=== PATIENT | female | born 1935 | race Caucasian/White ===

== ENCOUNTER 2019-05-31 13:55 | Inpatient (IN) ==
[2019-05-31 15:14] LABS: Basophils # 0.1 K/mcL (0.0-0.2); Basophils % 1.2 %; Eosinophils # 0.1 K/mcL (0.0-0.6); Eosinophils % 1.3 %; Hemoglobin 12.7 g/dL (11.5-15.4); Immature Granulocytes % 0.3 % (0-4); Immature Platelets 12.3 % (1.1-6.1); Lymphocytes # 0.8 K/mcL (0.6-4.6); Lymphocytes % 13.5 %; Mean Corpuscular HGB Conc 33.4 g/dL (31.6-35.5); Mean Corpuscular Hemoglobin 27.4 pg (28.0-33.3); Mean Corpuscular Volume 82.1 fL (83.0-100.0); Mean Platelet Volume 13.5 fL (9.4-12.4); Monocytes # 0.5 K/mcL (0.0-1.3); Neutrophils # 4.6 K/mcL (1.6-8.9); Platelet Count 131 K/mcL (140-400); Red Blood Count 4.63 M/mcL (3.82-4.97); Red Cell Distribution Width 17.3 % (11.5-14.5); Segmented Neutrophils % 75.7 %
[2019-05-31 15:26] LABS: BUN/Creatinine Ratio 15 (6-26); Blood Urea Nitrogen 25 mg/dL (8-23); Calcium 10.3 mg/dL (8.6-10.3); Carbon Dioxide 23 mEq/L (23-29); Chloride 100 mEq/L (98-107); Glucose 155 mg/dL (70-105); Osmolality,Calculated 284 (280-300); Potassium 4.7 mEq/L (3.5-5.1); Sodium 133 mEq/L (136-145); eGFR For African Americans 35 (> 60); eGFR For Non-African Americans 29 (> 60)
[2019-05-31 15:27] LABS: Troponin I < 0.03 ng/mL (< 0.04)
[2019-05-31] MEDS ORDERED: Furosemide 40 MG/4 ML VIAL IVP ONE (15:57)
[2019-05-31] MEDS ORDERED: Naloxone 0.4 MG/ML INJ IVP PRN (17:11)
[2019-05-31] MEDS ORDERED: Acetaminophen 325 MG TABLET PO PRN (17:11)
[2019-05-31] MEDS ORDERED: Ondansetron 4 MG/2 ML VIAL IVP PRN (17:11)
[2019-05-31] MEDS ORDERED: Dextrose Gel 15 GM/37.5 ML TUBE PO PRN ×2 (17:18)
[2019-05-31] MEDS ORDERED: *HR* Dextrose 50 % in Water (Syg) 50 ML SYRINGE IVP PRN (17:18)
[2019-05-31] MEDS ORDERED: D5% in Water 1,000 ML IVC PRN (17:18)
[2019-05-31] MEDS ORDERED: Ipratropium/Albuterol Neb 3 ML IH PRN (17:20)
[2019-05-31] MEDS: Insulin LISPRO 300 UNITS/3 ML VIAL SQ SCH (21:41)
[2019-05-31] MEDS: *HR* Heparin 5,000 UNIT/ML VIAL SQ SCH (21:51)
[2019-06-01] MEDS: Melatonin 3 MG TABLET PO SCH ×2 (01:16→23:45)
[2019-06-01] MEDS: *HR* Heparin 5,000 UNIT/ML VIAL SQ SCH ×2 (05:06→12:47)
[2019-06-01 07:01] LABS: Basophils # 0.1 K/mcL (0.0-0.2); Basophils % 1.2 %; Eosinophils # 0.1 K/mcL (0.0-0.6); Eosinophils % 2.5 %; Hematocrit 35.7 % (35.3-44.9); Hemoglobin 11.4 g/dL (11.5-15.4); Immature Granulocytes % 0.2 % (0-4); Lymphocytes # 1.1 K/mcL (0.6-4.6); Lymphocytes % 24.5 %; Mean Corpuscular HGB Conc 31.9 g/dL (31.6-35.5); Mean Corpuscular Hemoglobin 27.1 pg (28.0-33.3); Mean Corpuscular Volume 84.8 fL (83.0-100.0); Mean Platelet Volume 13.1 fL (9.4-12.4); Monocytes # 0.6 K/mcL (0.0-1.3); Monocytes % 13.6 %; Neutrophils # 2.5 K/mcL (1.6-8.9); Platelet Count 128 K/mcL (140-400); Red Blood Count 4.21 M/mcL (3.82-4.97); Red Cell Distribution Width 17.2 % (11.5-14.5); White Blood Count 4.3 K/mcL (4.3-11.1)
[2019-06-01 07:19] LABS: Calcium 9.7 mg/dL (8.6-10.3); Potassium 4.2 mEq/L (3.5-5.1)
[2019-06-01 07:55] LABS: Albumin 3.6 g/dL (3.5-5.7); Albumin/Globulin Ratio 1.4 (1.1-2.2); Bilirubin,Direct 0.2 mg/dL (0.0-0.2); Bilirubin,Indirect 0.6 mg/dL (0.0-1.0); Bilirubin,Total 0.8 mg/dL (0.3-1.0); Globulin 2.5 g/dL (2.4-3.5); Total Protein 6.1 g/dL (6.4-8.9)
[2019-06-01 07:59] LABS: Estimated Average Glucose 128 mg/dl
[2019-06-01] MEDS: Insulin LISPRO 300 UNITS/3 ML VIAL SQ SCH ×3 (08:26→22:00)
[2019-06-01] MEDS: Furosemide 40 MG/4 ML VIAL IVP SCH (08:27)
[2019-06-01] MEDS ORDERED: Insulin DETEMIR 100 UNIT/ML X5UNITS SQ SCH (09:00)
[2019-06-01] MEDS ORDERED: Dextrose Gel 15 GM/37.5 ML TUBE PO PRN ×2 (16:52)
[2019-06-01] MEDS ORDERED: D5% in Water 1,000 ML IVC PRN (16:52)
[2019-06-01] MEDS ORDERED: *HR* Dextrose 50 % in Water (Syg) 50 ML SYRINGE IVP PRN (16:52)
[2019-06-01] MEDS ORDERED: Insulin LISPRO 300 UNITS/3 ML VIAL SQ SCH ×2 (17:00→18:15)
[2019-06-01] MEDS: Mirtazapine 15 MG TABLET PO SCH (17:13)
[2019-06-01] MEDS: carvediloL 25 MG TABLET PO SCH (17:13)
[2019-06-01 17:52] LABS: INR 3.1
[2019-06-01] MEDS ORDERED: Warfarin perPT PO PRN (18:00)
[2019-06-01] MEDS ORDERED: *HR* Warfarin 3 MG TABLET PO ONE (19:00)
[2019-06-02] MEDS: Levothyroxine 25 MCG TABLET PO SCH (06:48)
[2019-06-02] MEDS: Insulin LISPRO 300 UNITS/3 ML VIAL SQ SCH ×4 (07:39→22:45)
[2019-06-02] MEDS: Fluticasone Propionate Nasal 50 MCG/SPRAY BOTTLE NS SCH (07:43)
[2019-06-02] MEDS: carvediloL 25 MG TABLET PO SCH ×2 (07:43→16:42)
[2019-06-02] MEDS: Aspirin Enteric Coated 81 MG Tablet PO SCH (07:43)
[2019-06-02] MEDS: Cholecalciferol (D-3) 1,000 UNIT (25MCG) TABLET PO SCH (07:43)
[2019-06-02] MEDS: Furosemide 40 MG/4 ML VIAL IVP SCH (07:43)
[2019-06-02] MEDS ORDERED: Insulin DETEMIR 100 UNIT/ML X5UNITS SQ SCH (09:00)
[2019-06-02 09:46] LABS: Basophils # 0.1 K/mcL (0.0-0.2); Basophils % 1.2 %; Eosinophils # 0.1 K/mcL (0.0-0.6); Eosinophils % 1.9 %; Hematocrit 36.4 % (35.3-44.9); Hemoglobin 11.7 g/dL (11.5-15.4); Immature Granulocytes % 0.4 % (0-4); Lymphocytes # 0.9 K/mcL (0.6-4.6); Lymphocytes % 19.2 %; Mean Corpuscular HGB Conc 32.1 g/dL (31.6-35.5); Mean Corpuscular Hemoglobin 27.3 pg (28.0-33.3); Mean Corpuscular Volume 84.8 fL (83.0-100.0); Monocytes # 0.6 K/mcL (0.0-1.3); Monocytes % 11.4 %; Neutrophils # 3.2 K/mcL (1.6-8.9); Platelet Count 134 K/mcL (140-400); Red Blood Count 4.29 M/mcL (3.82-4.97); Red Cell Distribution Width 17.3 % (11.5-14.5); Segmented Neutrophils % 65.9 %; White Blood Count 4.8 K/mcL (4.3-11.1)
[2019-06-02 09:52] LABS: INR 2.8; Prothrombin Time 31.3 Seconds (9.4-12.1)
[2019-06-02 10:06] LABS: Calcium 9.8 mg/dL (8.6-10.3); Potassium 3.8 mEq/L (3.5-5.1)
[2019-06-02] MEDS: Mirtazapine 15 MG TABLET PO SCH (16:42)
[2019-06-02] MEDS ORDERED: *HR* Warfarin 2.5 MG TABLET PO ONE (18:00)
[2019-06-02] MEDS: Melatonin 3 MG TABLET PO SCH (22:44)
[2019-06-03 05:12] LABS: Basophils # 0.1 K/mcL (0.0-0.2); Basophils % 1.4 %; Eosinophils # 0.1 K/mcL (0.0-0.6); Eosinophils % 2.9 %; Hemoglobin 12.1 g/dL (11.5-15.4); Immature Granulocytes % 0.4 % (0-4); Lymphocytes # 1.2 K/mcL (0.6-4.6); Lymphocytes % 23.5 %; Mean Corpuscular HGB Conc 31.8 g/dL (31.6-35.5); Mean Corpuscular Volume 84.8 fL (83.0-100.0); Mean Platelet Volume 13.5 fL (9.4-12.4); Monocytes # 0.6 K/mcL (0.0-1.3); Monocytes % 12.1 %; Neutrophils # 2.9 K/mcL (1.6-8.9); Platelet Count 138 K/mcL (140-400); Red Blood Count 4.48 M/mcL (3.82-4.97); Red Cell Distribution Width 17.3 % (11.5-14.5); Segmented Neutrophils % 59.7 %; White Blood Count 4.9 K/mcL (4.3-11.1)
[2019-06-03 05:29] LABS: Calcium 9.5 mg/dL (8.6-10.3); Magnesium 2.1 mg/dL (1.6-2.6); Potassium 4.1 mEq/L (3.5-5.1)
[2019-06-03 06:07] LABS: INR 2.8; Prothrombin Time 31.4 Seconds (9.4-12.1)
[2019-06-03] MEDS: Levothyroxine 25 MCG TABLET PO SCH (06:18)
[2019-06-03] MEDS ORDERED: carvediloL 25 MG TABLET PO SCH (08:00)
[2019-06-03] MEDS: Aspirin Enteric Coated 81 MG Tablet PO SCH (08:19)
[2019-06-03] MEDS: Furosemide 40 MG/4 ML VIAL IVP SCH (08:19)
[2019-06-03] MEDS: Cholecalciferol (D-3) 1,000 UNIT (25MCG) TABLET PO SCH (08:19)
[2019-06-03] MEDS: Insulin LISPRO 300 UNITS/3 ML VIAL SQ SCH ×3 (08:19→17:18)
[2019-06-03] MEDS: Fluticasone Propionate Nasal 50 MCG/SPRAY BOTTLE NS SCH (08:20)
[2019-06-03] MEDS ORDERED: Warfarin perPT PO PRN (11:45)
[2019-06-03 15:35] VITALS: BP 161/81
[2019-06-03] MEDS ORDERED: *HR* Warfarin 2 MG TABLET PO ONE (18:00)
== END 2019-06-03 17:32 | disposition home or self-care (01) | DRG 291 ==
LOC: SUATTDRO → EMEROOARM 13:55 → 2ANU 13:55 → SUATTDRO 18:57 → 2ANU 19:30
PROVIDERS: ADMIT Pharmacist; ATTEND Pharmacist

== ENCOUNTER 2019-06-05 13:55 | Inpatient (IN) ==
[2019-06-05 15:02] LABS: Red Cell Distribution Width 17.2 % (11.5-14.5)
[2019-06-05 15:04] LABS: Hematocrit 38.7 % (35.3-44.9); Hemoglobin 12.8 g/dL (11.5-15.4); Immature Platelets 12.8 % (1.1-6.1); Mean Corpuscular HGB Conc 33.1 g/dL (31.6-35.5); Mean Corpuscular Hemoglobin 27.3 pg (28.0-33.3); Mean Corpuscular Volume 82.5 fL (83.0-100.0); Mean Platelet Volume 13.2 fL (9.4-12.4); Red Blood Count 4.69 M/mcL (3.82-4.97); White Blood Count 6.1 K/mcL (4.3-11.1)
[2019-06-05 15:20] LABS: Albumin/Globulin Ratio 1.4 (1.1-2.2); Bilirubin,Direct 0.5 mg/dL (0.0-0.2); Bilirubin,Total 1.5 mg/dL (0.3-1.0); Globulin 2.8 g/dL (2.4-3.5); Potassium 3.7 mEq/L (3.5-5.1); Total Protein 6.8 g/dL (6.4-8.9)
[2019-06-05] MEDS ORDERED: Naloxone 0.4 MG/ML INJ IVP PRN (17:03)
[2019-06-05] MEDS ORDERED: Ondansetron 4 MG/2 ML VIAL IVP PRN (17:03)
[2019-06-05] MEDS ORDERED: Dextrose Gel 15 GM/37.5 ML TUBE PO PRN ×2 (17:41)
[2019-06-05] MEDS ORDERED: D5% in Water 1,000 ML IVC PRN (17:41)
[2019-06-05] MEDS ORDERED: *HR* Dextrose 50 % in Water (Syg) 50 ML SYRINGE IVP PRN (17:41)
[2019-06-05 17:54] LABS: Prothrombin Time 45.2 Seconds (9.4-12.1)
[2019-06-05] MEDS ORDERED: Warfarin perPT PO PRN (18:00)
[2019-06-05] MEDS: Furosemide 40 MG/4 ML VIAL IVP SCH (20:42)
[2019-06-05] MEDS: Mirtazapine 15 MG TABLET PO SCH (20:43)
[2019-06-05] MEDS: Insulin LISPRO 300 UNITS/3 ML VIAL SQ SCH (21:31)
[2019-06-06] MEDS: Levothyroxine 25 MCG TABLET PO SCH (05:28)
[2019-06-06 06:52] LABS: Basophils # 0.1 K/mcL (0.0-0.2); Basophils % 1.2 %; Eosinophils # 0.1 K/mcL (0.0-0.6); Eosinophils % 1.9 %; Hematocrit 37.3 % (35.3-44.9); Immature Granulocytes % 0.4 % (0-4); Lymphocytes # 0.7 K/mcL (0.6-4.6); Lymphocytes % 12.6 %; Mean Corpuscular HGB Conc 32.2 g/dL (31.6-35.5); Mean Platelet Volume 12.9 fL (9.4-12.4); Monocytes # 0.6 K/mcL (0.0-1.3); Monocytes % 11.9 %; Neutrophils # 3.7 K/mcL (1.6-8.9); Platelet Count 117 K/mcL (140-400); Red Blood Count 4.44 M/mcL (3.82-4.97); Red Cell Distribution Width 17.2 % (11.5-14.5); White Blood Count 5.1 K/mcL (4.3-11.1)
[2019-06-06 07:10] LABS: INR 4.1
[2019-06-06 07:11] LABS: Amylase 93 Units/L (29-103); Lipase 193 Units/L (11-82)
[2019-06-06 07:16] LABS: Calcium 9.7 mg/dL (8.6-10.3); Potassium 3.4 mEq/L (3.5-5.1)
[2019-06-06 07:25] LABS: Prothrombin Time 46.3 Seconds (9.4-12.1)
[2019-06-06] MEDS: Insulin LISPRO 300 UNITS/3 ML VIAL SQ SCH ×3 (08:20→17:50)
[2019-06-06] MEDS: Furosemide 40 MG/4 ML VIAL IVP SCH ×2 (08:24→17:53)
[2019-06-06] MEDS: carvediloL 25 MG TABLET PO SCH ×2 (08:25→17:53)
[2019-06-06] MEDS: Spironolactone 25 MG TABLET PO SCH (08:25)
[2019-06-06] MEDS: Aspirin 81 MG TAB.CHEW PO SCH (08:26)
[2019-06-06] MEDS ORDERED: Fluticasone Propionate Nasal 50 MCG/SPRAY BOTTLE NS SCH (09:00)
[2019-06-06 09:36] LABS: Albumin 4.1 g/dL (3.5-5.7); Albumin/Globulin Ratio 1.4 (1.1-2.2); Bilirubin,Direct 0.5 mg/dL (0.0-0.2); Bilirubin,Indirect 1.2 mg/dL (0.0-1.0); Bilirubin,Total 1.7 mg/dL (0.3-1.0); Globulin 2.9 g/dL (2.4-3.5)
[2019-06-06 10:22] LABS: Hepatitis B Core IgM Nonreactive (Nonreactive)
[2019-06-06 10:23] LABS: Hepatitis C Virus Antibody Nonreactive (Nonreactive)
[2019-06-06 10:24] LABS: Hepatitis A Antibody IgM Nonreactive (Nonreactive)
[2019-06-06 11:58] LABS: Hepatitis B Surface Antigen Nonreactive (Nonreactive)
[2019-06-06] MEDS ORDERED: tiZANidine 4 MG TABLET PO PRN (12:04)
[2019-06-06] MEDS: Mirtazapine 15 MG TABLET PO SCH (21:22)
[2019-06-06] MEDS: Lactobacillus 1 EACH CAP.SPRINK PO SCH (21:22)
[2019-06-07 05:35] LABS: INR 3.7; Prothrombin Time 42.2 Seconds (9.4-12.1)
[2019-06-07] MEDS: Levothyroxine 25 MCG TABLET PO SCH (05:42)
[2019-06-07 05:45] LABS: Basophils # 0.1 K/mcL (0.0-0.2); Eosinophils # 0.1 K/mcL (0.0-0.6); Eosinophils % 1.8 %; Hematocrit 37.3 % (35.3-44.9); Hemoglobin 12.2 g/dL (11.5-15.4); Immature Granulocytes % 0.4 % (0-4); Immature Platelets 12.4 % (1.1-6.1); Lymphocytes # 0.7 K/mcL (0.6-4.6); Lymphocytes % 13.5 %; Mean Corpuscular HGB Conc 32.7 g/dL (31.6-35.5); Mean Corpuscular Hemoglobin 26.6 pg (28.0-33.3); Mean Corpuscular Volume 81.3 fL (83.0-100.0); Mean Platelet Volume 13.2 fL (9.4-12.4); Monocytes # 0.7 K/mcL (0.0-1.3); Monocytes % 13.3 %; Neutrophils # 3.5 K/mcL (1.6-8.9); Platelet Count 109 K/mcL (140-400); Red Blood Count 4.59 M/mcL (3.82-4.97); Red Cell Distribution Width 17.1 % (11.5-14.5)
[2019-06-07 05:54] LABS: Albumin 3.8 g/dL (3.5-5.7); Albumin/Globulin Ratio 1.3 (1.1-2.2); Bilirubin,Direct 0.5 mg/dL (0.0-0.2); Bilirubin,Indirect 1.3 mg/dL (0.0-1.0); Bilirubin,Total 1.8 mg/dL (0.3-1.0); Calcium 9.8 mg/dL (8.6-10.3); Globulin 2.9 g/dL (2.4-3.5); Magnesium 1.6 mg/dL (1.6-2.6); Potassium 3.1 mEq/L (3.5-5.1); Total Protein 6.7 g/dL (6.4-8.9)
[2019-06-07 08:27] LABS: Platelet Estimate Decreased (Normal)
[2019-06-07] MEDS: Cholecalciferol (D-3) 1,000 UNIT (25MCG) TABLET PO SCH (09:56)
[2019-06-07] MEDS: Lactobacillus 1 EACH CAP.SPRINK PO SCH ×2 (09:57→20:43)
[2019-06-07] MEDS: Aspirin 81 MG TAB.CHEW PO SCH (09:57)
[2019-06-07] MEDS: carvediloL 25 MG TABLET PO SCH ×2 (09:57→17:28)
[2019-06-07] MEDS: Spironolactone 25 MG TABLET PO SCH (09:58)
[2019-06-07] MEDS: Insulin LISPRO 300 UNITS/3 ML VIAL SQ SCH ×3 (10:05→17:21)
[2019-06-07] MEDS: Furosemide 40 MG/4 ML VIAL IVP SCH ×2 (10:08→19:54)
[2019-06-07] MEDS: Fluticasone Propionate Nasal 50 MCG/SPRAY BOTTLE NS SCH (10:09)
[2019-06-07] MEDS ORDERED: Lactulose Oral Soln 20 GM/30 ML UDC PO PRN (14:18)
[2019-06-07] MEDS: Mirtazapine 15 MG TABLET PO SCH (20:43)
[2019-06-08] MEDS: Levothyroxine 25 MCG TABLET PO SCH (05:49)
[2019-06-08 07:03] LABS: Red Cell Distribution Width 17.2 % (11.5-14.5)
[2019-06-08 07:05] LABS: Basophils # 0.1 K/mcL (0.0-0.2); Basophils % 1.3 %; Eosinophils # 0.1 K/mcL (0.0-0.6); Eosinophils % 2.3 %; Hematocrit 38.7 % (35.3-44.9); Hemoglobin 12.7 g/dL (11.5-15.4); INR 2.7; Immature Granulocytes % 0.2 % (0-4); Immature Platelets 12.4 % (1.1-6.1); Lymphocytes # 0.7 K/mcL (0.6-4.6); Lymphocytes % 14.5 %; Mean Corpuscular HGB Conc 32.8 g/dL (31.6-35.5); Mean Corpuscular Hemoglobin 26.8 pg (28.0-33.3); Mean Corpuscular Volume 81.6 fL (83.0-100.0); Monocytes # 0.7 K/mcL (0.0-1.3); Monocytes % 14.9 %; Neutrophils # 3.2 K/mcL (1.6-8.9); Platelet Count 108 K/mcL (140-400); Prothrombin Time 30.7 Seconds (9.4-12.1); Red Blood Count 4.74 M/mcL (3.82-4.97); Segmented Neutrophils % 66.8 %; White Blood Count 4.8 K/mcL (4.3-11.1)
[2019-06-08 07:24] LABS: Magnesium 1.7 mg/dL (1.6-2.6); Potassium 3.7 mEq/L (3.5-5.1)
[2019-06-08] MEDS: Spironolactone 25 MG TABLET PO SCH (07:41)
[2019-06-08] MEDS: Lactobacillus 1 EACH CAP.SPRINK PO SCH ×2 (07:41→21:01)
[2019-06-08] MEDS: Cholecalciferol (D-3) 1,000 UNIT (25MCG) TABLET PO SCH (07:41)
[2019-06-08] MEDS: carvediloL 25 MG TABLET PO SCH ×2 (07:41→18:15)
[2019-06-08] MEDS: Furosemide 40 MG/4 ML VIAL IVP SCH (07:41)
[2019-06-08] MEDS: Aspirin 81 MG TAB.CHEW PO SCH (07:42)
[2019-06-08] MEDS: Insulin LISPRO 300 UNITS/3 ML VIAL SQ SCH ×3 (07:57→18:14)
[2019-06-08] MEDS ORDERED: Lactulose Oral Soln 20 GM/30 ML UDC PO SCH (09:23)
[2019-06-08 09:41] LABS: Albumin/Globulin Ratio 1.4 (1.1-2.2); Bilirubin,Direct 0.5 mg/dL (0.0-0.2); Bilirubin,Total 1.5 mg/dL (0.3-1.0); Globulin 2.9 g/dL (2.4-3.5); Total Protein 6.9 g/dL (6.4-8.9)
[2019-06-08] MEDS: Fluticasone Propionate Nasal 50 MCG/SPRAY BOTTLE NS SCH (12:29)
[2019-06-08] MEDS: Mirtazapine 15 MG TABLET PO SCH (21:01)
[2019-06-09] MEDS: Levothyroxine 25 MCG TABLET PO SCH (05:09)
[2019-06-09 06:08] LABS: INR 1.9; Prothrombin Time 22.1 Seconds (9.4-12.1)
[2019-06-09 06:28] LABS: Albumin 4.1 g/dL (3.5-5.7); Albumin/Globulin Ratio 1.4 (1.1-2.2); Bilirubin,Total 1.4 mg/dL (0.3-1.0); Calcium 10.6 mg/dL (8.6-10.3); Potassium 4.5 mEq/L (3.5-5.1); Total Protein 7.1 g/dL (6.4-8.9)
[2019-06-09] MEDS: carvediloL 25 MG TABLET PO SCH ×2 (08:44→18:20)
[2019-06-09] MEDS: Lactobacillus 1 EACH CAP.SPRINK PO SCH ×2 (08:44→21:23)
[2019-06-09] MEDS: Spironolactone 25 MG TABLET PO SCH (08:44)
[2019-06-09] MEDS: Cholecalciferol (D-3) 1,000 UNIT (25MCG) TABLET PO SCH (08:44)
[2019-06-09] MEDS: Aspirin 81 MG TAB.CHEW PO SCH (08:44)
[2019-06-09] MEDS: Insulin LISPRO 300 UNITS/3 ML VIAL SQ SCH ×3 (08:45→17:09)
[2019-06-09] MEDS: Fluticasone Propionate Nasal 50 MCG/SPRAY BOTTLE NS SCH (08:45)
[2019-06-09] MEDS: Furosemide 40 MG/4 ML VIAL IVP SCH (08:45)
[2019-06-09] MEDS: Mirtazapine 15 MG TABLET PO SCH (21:23)
[2019-06-10 05:43] LABS: Eosinophils % 3.9 %; Red Cell Distribution Width 17.2 % (11.5-14.5)
[2019-06-10 05:45] LABS: Basophils # 0.1 K/mcL (0.0-0.2); Basophils % 1.4 %; Eosinophils # 0.2 K/mcL (0.0-0.6); Hematocrit 38.5 % (35.3-44.9); Hemoglobin 12.6 g/dL (11.5-15.4); Immature Granulocytes % 0.4 % (0-4); Immature Platelets 17.5 % (1.1-6.1); Lymphocytes # 0.9 K/mcL (0.6-4.6); Lymphocytes % 18.6 %; Mean Corpuscular HGB Conc 32.7 g/dL (31.6-35.5); Mean Corpuscular Hemoglobin 26.8 pg (28.0-33.3); Mean Corpuscular Volume 81.7 fL (83.0-100.0); Monocytes # 0.6 K/mcL (0.0-1.3); Monocytes % 13.2 %; Platelet Count 109 K/mcL (140-400); Red Blood Count 4.71 M/mcL (3.82-4.97); Segmented Neutrophils % 62.5 %; White Blood Count 4.8 K/mcL (4.3-11.1)
[2019-06-10] MEDS: Levothyroxine 25 MCG TABLET PO SCH (05:49)
[2019-06-10 05:50] LABS: INR 1.5; Prothrombin Time 17.5 Seconds (9.4-12.1)
[2019-06-10 06:06] LABS: Albumin/Globulin Ratio 1.3 (1.1-2.2); Bilirubin,Total 1.1 mg/dL (0.3-1.0); Potassium 4.1 mEq/L (3.5-5.1)
[2019-06-10 07:10] LABS: Platelet Estimate Normal (Normal)
[2019-06-10] MEDS: Insulin LISPRO 300 UNITS/3 ML VIAL SQ SCH ×3 (09:39→17:16)
[2019-06-10] MEDS: Spironolactone 25 MG TABLET PO SCH (10:53)
[2019-06-10] MEDS: carvediloL 25 MG TABLET PO SCH ×2 (10:53→17:16)
[2019-06-10] MEDS: Cholecalciferol (D-3) 1,000 UNIT (25MCG) TABLET PO SCH (10:54)
[2019-06-10] MEDS: Lactobacillus 1 EACH CAP.SPRINK PO SCH ×2 (10:54→20:41)
[2019-06-10] MEDS: Fluticasone Propionate Nasal 50 MCG/SPRAY BOTTLE NS SCH (10:54)
[2019-06-10] MEDS: Aspirin 81 MG TAB.CHEW PO SCH (10:54)
[2019-06-10] MEDS: Mirtazapine 15 MG TABLET PO SCH (20:41)
[2019-06-11] MEDS: Levothyroxine 25 MCG TABLET PO SCH (05:31)
[2019-06-11 05:34] LABS: Albumin 3.7 g/dL (3.5-5.7); Albumin/Globulin Ratio 1.3 (1.1-2.2); Bilirubin,Total 1.4 mg/dL (0.3-1.0); Calcium 10.3 mg/dL (8.6-10.3); Globulin 2.9 g/dL (2.4-3.5); Potassium 3.8 mEq/L (3.5-5.1); Total Protein 6.6 g/dL (6.4-8.9)
[2019-06-11] MEDS: Spironolactone 25 MG TABLET PO SCH (08:11)
[2019-06-11] MEDS: Cholecalciferol (D-3) 1,000 UNIT (25MCG) TABLET PO SCH (08:11)
[2019-06-11] MEDS: Insulin LISPRO 300 UNITS/3 ML VIAL SQ SCH ×3 (08:11→17:11)
[2019-06-11] MEDS: carvediloL 25 MG TABLET PO SCH ×2 (08:11→17:11)
[2019-06-11] MEDS: Lactobacillus 1 EACH CAP.SPRINK PO SCH ×2 (08:11→21:21)
[2019-06-11] MEDS: Aspirin 81 MG TAB.CHEW PO SCH (08:11)
[2019-06-11] MEDS: Fluticasone Propionate Nasal 50 MCG/SPRAY BOTTLE NS SCH (08:12)
[2019-06-11] MEDS: Mirtazapine 15 MG TABLET PO SCH (21:20)
[2019-06-12] MEDS: Levothyroxine 25 MCG TABLET PO SCH (06:09)
[2019-06-12 06:46] LABS: Albumin 3.8 g/dL (3.5-5.7); Albumin/Globulin Ratio 1.3 (1.1-2.2); Bilirubin,Total 1.2 mg/dL (0.3-1.0); Calcium 10.4 mg/dL (8.6-10.3); Globulin 2.9 g/dL (2.4-3.5); Total Protein 6.7 g/dL (6.4-8.9)
[2019-06-12] MEDS: Insulin LISPRO 300 UNITS/3 ML VIAL SQ SCH ×2 (08:25→12:25)
[2019-06-12] MEDS: Cholecalciferol (D-3) 1,000 UNIT (25MCG) TABLET PO SCH (08:25)
[2019-06-12] MEDS: Lactobacillus 1 EACH CAP.SPRINK PO SCH (08:26)
[2019-06-12] MEDS: Spironolactone 25 MG TABLET PO SCH (08:26)
[2019-06-12] MEDS: carvediloL 25 MG TABLET PO SCH (08:26)
[2019-06-12] MEDS: Aspirin 81 MG TAB.CHEW PO SCH (08:26)
[2019-06-12] MEDS: Fluticasone Propionate Nasal 50 MCG/SPRAY BOTTLE NS SCH (08:31)
[2019-06-12 11:56] VITALS: BP 168/77
== END 2019-06-12 15:20 | DRG 432 ==
LOC: EMEROOARM 13:55 → 3BNU 13:55 → SUATTDRO 17:18 → 3BNU 20:00 → SUATTDRO 06-06 16:51
PROVIDERS: ADMIT Internal Medicine; ATTEND Internal Medicine